=== PATIENT | female | born 1975 ===

== ENCOUNTER → 2018-04-28 21:30 | Outpatient (REF) | payer OTHER, SELFPAY ==
[2018-04-28 22:33] LABS: Alanine Aminotransferase 32 IU/L (9-52); Albumin 4.1 g/dL (3.5-5.0); Albumin Globulin Ratio 1.4 (1.0-2.8); Alkaline Phosphatase 59 U/L (38-126); Aspartate Aminotransferase 19 IU/L (14-36); BUN Creatinine Ratio 12.2 (6-22); Bilirubin Total 0.5 mg/dL (0.2-1.3); Blood Urea Nitrogen 11 mg/dL (7-17); Calcium 9.2 mg/dL (8.4-10.2); Carbon Dioxide 29 mmol/L (22-32); Chloride 104 mmol/L (98-107); Estimated Glomerular Filt Rate > 60.0 mL/min (>60); Globulin 2.9 g/dL (1.7-4.1); Glucose 101 mg/dL (70-100); HEMOLYSIS < 15 (0-50); Potassium 4.1 mmol/L (3.4-5.1); Sodium 141 mmol/L (137-145)
[2018-04-28 23:03] LABS: Troponin I < 0.012 ng/mL (0.01-0.034)
[2018-04-28 23:04] LABS: Thyroid Stimulating Hormone 2.29 uIU/mL (0.47-4.68)
[2018-04-29 01:08] LABS: Lactate Dehydrogenase 368 U/L (313-618)
[2018-04-29 12:53] LABS: Free T3, Triiodothyronine Free 3.19 pg/mL (2.77-5.27); T4 Total Thyroxine 6.73 ug/dL (5.5-11.0)
[2018-05-02 15:06] LABS: Anti Thyroglobulin Antibody < 1 IU/mL (< 2); Thyroid Peroxidase Antibodies 1 IU/mL (< 9)
[2018-05-03 16:42] LABS: Magnesium, RBC 6.6 mg/dL (4.0-6.4)
== END ==
LOC: LAB 21:30
PROVIDERS: Visit Provider Naturopath
DX: R07.9 Chest pain, unspecified (principal)
CPT/HCPCS: 36415; 80053; 83615; 83735; 84436; 84443; 84481; 84484; 86376; 86800